=== PATIENT | female | born 1955 | race Caucasian/White ===

== ENCOUNTER → 2023-11-04 10:25 | Outpatient (REF) | payer MEDICARE, SELFPAY | LOC: HWWDC 10:25 | PROVIDERS: ATTENDING PHYSICIAN Nurse Practitioner Family; FAMILY PHYSICIAN Podiatrist | DX: S92.215D Nondisplaced fracture of cuboid bone of left foot, subsequent encounter for fracture with routine healing (principal); Z12.31 Encounter for screening mammogram for malignant neoplasm of breast | CPT/HCPCS: 73700; 77063; 77067 ==

== ENCOUNTER → 2023-11-24 10:22 | Outpatient (REF) | payer MEDICARE, SELFPAY ==
[2023-11-24 10:47] LABS: Ionized Calcium 1.14 mMOL/L (1.15-1.33)
[2023-11-24 11:21] LABS: ALT (SGPT) 29 U/L (0-35); AST (SGOT) 26 U/L (14-36); Albumin 3.8 g/dl (3.5-5.0); Alkaline Phosphatase 64 U/L (38-126); Blood Urea Nitrogen 16 mg/dl (7-17); Calcium 9.3 mg/dl (8.4-10.2); Carbon Dioxide 28 mmol/L (22-30); Chloride 105 mmol/L (98-107); Glucose 110 mg/dl (70-99); Potassium 4.1 mmol/L (3.5-5.1); Sodium 140 mmol/L (135-145); Total Bilirubin 0.6 mg/dl (0.2-1.3); Total Protein 6.4 g/dl (6.3-8.2); eGFR > 60.00
[2023-11-24 11:51] LABS: TSH 2.26 uIU/ml (0.47-4.68)
[2023-11-24 12:56] LABS: Free T4 0.95 ng/dl (0.78-2.19)
[2023-11-24 14:43] LABS: 24 Hour Urine Creatinine 0.939 gm/day (0.8-1.8); 24 Hour Urine Total Volume 1500 ml; Urine Calcium 9.4 mg/dl
[2023-11-27 10:14] LABS: Intact PTH 104.3 pg/ml (13.6-85.8)
== END ==
LOC: REG 10:22
PROVIDERS: ATTENDING PHYSICIAN Physician Assistant; FAMILY PHYSICIAN Nurse Practitioner Family
DX: E83.52 Hypercalcemia (principal); E34.9 Endocrine disorder, unspecified; E21.0 Primary hyperparathyroidism
CPT/HCPCS: 36415; 80053; 81050; 82330; 82340; 82570; 83970; 84439; 84443

== ENCOUNTER → 2024-09-18 08:34 | Outpatient (REF) | payer MEDICARE, SELFPAY ==
[2024-09-18 11:30] LABS: % Eosinophils 3.6 % (0-6); % Immature Granulocytes 0.1 % (0-0.5); % Lymphocytes 41.9 % (20.5-51.1); % Neutrophils 45.4 % (42.2-75.2); Absolute Basophils 0.1 10^3/uL (0-0.2); Absolute Eosinophils 0.3 10^3/uL (0-0.7); Absolute Lymphocytes 2.9 10^3/uL (1.2-3.4); Absolute Monocytes 0.6 10^3/uL (0.1-0.6); Absolute Neutrophils 3.2 10^3/uL (1.4-6.5); Hematocrit 42.1 % (37.0-47.0); Hemoglobin 13.9 g/dL (12.0-16.0); Mean Corpuscular Hgb 33.3 pg (27.0-31.0); Mean Corpuscular Volume 100.7 fL (81.0-99.0); Mean Platelet Volume 11.8 fL (7.4-10.4); Nucleated Red Blood Cells % 0 %; Platelet Count 209 10^3/uL (130-400); Red Blood Cell Count 4.18 10^6/uL (4.20-5.40); Red Cell Dist. Width 12.8 % (11.5-14.5)
[2024-09-18 11:52] LABS: ALT (SGPT) 18 U/L (0-35); AST (SGOT) 23 U/L (14-36); Albumin 4.2 g/dl (3.5-5.0); Alkaline Phosphatase 55 U/L (38-126); Blood Urea Nitrogen 22 mg/dl (7-17); Calcium 9.3 mg/dl (8.4-10.2); Carbon Dioxide 27 mmol/L (22-30); Chloride 106 mmol/L (98-107); Glucose 96 mg/dl (70-99); HDL Cholesterol 84 mg/dl; LDL Cholesterol, Calculated 148 mg/dl; Potassium 4.3 mmol/L (3.5-5.1); Sodium 142 mmol/L (135-145); Total Bilirubin 0.6 mg/dl (0.2-1.3); Total Cholesterol 257 mg/dl (50-199); Total Protein 6.8 g/dl (6.3-8.2); Triglyceride 129 mg/dl (10-149); Very Low Density Lipoprotein 25 mg/dl (0-30); eGFR > 60.00
[2024-09-18 12:04] LABS: Vitamin D, 25-OH*** 47.2 ng/mL (30-80)
[2024-09-18 12:33] LABS: Glycohemoglobin (HgbA1c) 5.6 % (4.0-5.6)
== END ==
LOC: HWLAB 08:34
PROVIDERS: ATTENDING PHYSICIAN Nurse Practitioner Family
DX: E78.2 Mixed hyperlipidemia (principal); R79.89 Other specified abnormal findings of blood chemistry; R73.03 Prediabetes; E66.9 Obesity, unspecified; E83.52 Hypercalcemia; Z00.00 Encounter for general adult medical examination without abnormal findings
CPT/HCPCS: 36415; 80053; 80061; 82306; 83036; 84443; 85025

== ENCOUNTER → 2024-10-18 07:46 | Outpatient (REF) | payer MEDICARE, SELFPAY ==
[2024-10-18 08:16] LABS: Ionized Calcium 1.16 mMOL/L (1.15-1.33)
[2024-10-18 08:54] LABS: ALT (SGPT) 17 U/L (0-35); AST (SGOT) 21 U/L (14-36); Albumin 4.2 g/dl (3.5-5.0); Alkaline Phosphatase 68 U/L (38-126); Blood Urea Nitrogen 19 mg/dl (7-17); Calcium 9.3 mg/dl (8.4-10.2); Carbon Dioxide 25 mmol/L (22-30); Chloride 107 mmol/L (98-107); Glucose 99 mg/dl (70-99); Potassium 4.3 mmol/L (3.5-5.1); Sodium 139 mmol/L (135-145); Total Bilirubin 0.5 mg/dl (0.2-1.3); Total Protein 6.9 g/dl (6.3-8.2); eGFR > 60.00
[2024-10-18 09:13] LABS: 24 Hour Urine Creatinine 0.906 gm/day (0.8-1.8); 24 Hour Urine Total Volume 2250 ml
[2024-10-18 09:14] LABS: Urine Calcium 5.6 mg/dl
[2024-10-18 09:22] LABS: TSH 3.47 uIU/ml (0.47-4.68)
== END ==
LOC: REG 07:46
PROVIDERS: ATTENDING PHYSICIAN Physician Assistant; FAMILY PHYSICIAN Nurse Practitioner Family
DX: E21.0 Primary hyperparathyroidism (principal); E83.52 Hypercalcemia; E55.9 Vitamin D deficiency, unspecified; E89.2 Postprocedural hypoparathyroidism
CPT/HCPCS: 36415; 80053; 81050; 82306; 82330; 82340; 82570; 83970; 84443

== ENCOUNTER → 2024-10-23 11:26 | Outpatient (REF) | payer MEDICARE, SELFPAY | LOC: HWRAD 11:26 | PROVIDERS: ATTENDING PHYSICIAN Internal Medicine Critical Care Medicine; FAMILY PHYSICIAN Nurse Practitioner Family | DX: Z87.891 Personal history of nicotine dependence (principal) | CPT/HCPCS: 71271 ==

== ENCOUNTER → 2025-09-18 08:12 | Outpatient (REF) | payer MEDICARE, SELFPAY | LOC: HWRAD 08:12 | PROVIDERS: ATTENDING PHYSICIAN Physician Assistant; FAMILY PHYSICIAN Nurse Practitioner Family | DX: Z12.31 Encounter for screening mammogram for malignant neoplasm of breast (principal); M85.80 Other specified disorders of bone density and structure, unspecified site; M81.0 Age-related osteoporosis without current pathological fracture | CPT/HCPCS: 77063; 77067; 77080; 77081 ==

== ENCOUNTER → 2025-09-25 14:40 | Outpatient (REF) | payer MEDICARE, SELFPAY ==
[2025-09-25 15:38] LABS: ALT (SGPT) 25 U/L (0-35); AST (SGOT) 23 U/L (14-36); Albumin 4.3 g/dl (3.5-5.0); Alkaline Phosphatase 66 U/L (38-126); Blood Urea Nitrogen 23 mg/dl (7-17); Calcium 9.1 mg/dl (8.4-10.2); Carbon Dioxide 25 mmol/L (22-30); Chloride 104 mmol/L (98-107); Glucose 95 mg/dl (70-99); Potassium 4.2 mmol/L (3.5-5.1); Sodium 134 mmol/L (135-145); Total Protein 7.0 g/dl (6.3-8.2); eGFR > 60.00
[2025-09-25 16:08] LABS: TSH 2.09 uIU/ml (0.47-4.68)
[2025-09-25 16:48] LABS: Vitamin D, 25-OH*** 65.3 ng/mL (30-80)
== END ==
LOC: REG 14:40
PROVIDERS: ATTENDING PHYSICIAN Physician Assistant
DX: E21.0 Primary hyperparathyroidism (principal); E83.52 Hypercalcemia; E89.2 Postprocedural hypoparathyroidism
CPT/HCPCS: 36415; 80053; 82306; 82330; 83970; 84439; 84443

== ENCOUNTER → 2025-10-02 12:03 | Outpatient (REF) | payer MEDICARE, SELFPAY ==
[2025-10-02 14:02] LABS: 24 Hour Urine Total Volume 2000 ml
== END ==
LOC: REG 12:03
PROVIDERS: ATTENDING PHYSICIAN Physician Assistant
DX: E21.0 Primary hyperparathyroidism (principal); E83.52 Hypercalcemia; E89.2 Postprocedural hypoparathyroidism
CPT/HCPCS: 81050; 82340; 82570